=== PATIENT | male | born 2000 | race Caucasian/White ===

== ENCOUNTER 2022-07-22 14:42 | Emergency (ER) | payer BC, OTHER ==
[2022-07-22] MEDS ORDERED: Diphtheria,Pertussis(Acell),Tetanus Vaccine 0.5 ML Syringe IM ONE (15:01)
[2022-07-22] MEDS ORDERED: Lidocaine 1% with EPINEPHrine 1:100,000 10 ML MDV INJECT ONE (15:01)
== END 2022-07-22 15:24 | disposition home or self-care (01) ==
LOC: KA.ED 14:42
DX: S01.01XA Laceration without foreign body of scalp, initial encounter (principal); Z23 Encounter for immunization; W26.8XXA Contact with other sharp object(s), not elsewhere classified, initial encounter
CPT/HCPCS: 12002; 90471; 90715; 99282-25; J3490

== ENCOUNTER 2023-07-15 16:58 | Emergency (ER) | payer OTHER ==
[2023-07-15] MEDS ORDERED: Sodium Chloride 0.9% 10 ML Syringe FLUSH PRN (17:08)
[2023-07-15] MEDS ORDERED: Naloxone 0.4 MG/ML SDV IVPUSH PRN (17:09)
[2023-07-15] MEDS: Diphtheria,Pertussis(Acell),Tetanus Vaccine 0.5 ML Syringe IM ONE (17:15)
[2023-07-15] MEDS: Sodium Chloride 0.9% 1,000 ML ONE (17:26)
[2023-07-15] MEDS: HYDROmorphone 1 MG/ML Syringe IM ONE (17:27)
[2023-07-15] MEDS: Ondansetron 4 MG/2 ML SDV IVPUSH ONE (17:30)
[2023-07-15] MEDS: ceFAZolin 1 GM Vial IVPUSH ONE (17:32)
[2023-07-15] MEDS: Sodium Chloride 0.9% 1,000 ML IV SCH (17:35)
[2023-07-15 17:37] LABS: BASOPHILS ABSOLUTE AUTO 0.02 10^3/uL (0.00-0.10); BASOPHILS PERCENT AUTO 0.1 % (0.0-1.0); EOSINOPHILS ABSOLUTE AUTO 0.11 10^3/uL (0.10-0.30); EOSINOPHILS PERCENT AUTO 0.5 % (1.0-3.0); HEMATOCRIT 41.8 % (40.0-52.0); HEMOGLOBIN 14.9 g/dL (13.0-17.0); IMMATURE GRAN ABSOLUTE AUTO 0.03 10^3/uL (0.00-0.50); IMMATURE GRAN PERCENT AUTO 0.1 % (0.0-5.0); LYMPHOCYTES ABSOLUTE AUTO 2.66 10^3/uL (1.00-4.00); LYMPHOCYTES PERCENT AUTO 11.5 % (20.0-40.0); MEAN CORPUSCULAR HEMOGLOBIN 33.2 pg (27.0-31.0); MEAN CORPUSCULAR HGB CONC 35.6 g/dL (32.0-36.0); MEAN CORPUSCULAR VOLUME 93.1 fL (82.0-92.0); MEAN PLATELET VOLUME 9.4 fL (7.4-10.4); MONOCYTES ABSOLUTE AUTO 1.79 10^3/uL (0.10-0.80); MONOCYTES PERCENT AUTO 7.7 % (2.0-8.0); NEUTROPHILS ABSOLUTE AUTO 18.59 10^3/uL (2.50-7.00); NEUTROPHILS PERCENT AUTO 80.1 % (50.0-70.0); PLATELET COUNT,PLT 320 10^3/uL (150-400); RED BLOOD CELL COUNT 4.49 10^6/uL (4.50-6.00); RED CELL DISTRIBUTION WIDTH 11.6 % (11.5-14.5)
[2023-07-15] MEDS: HYDROmorphone 1 MG/ML Syringe ONE (17:38)
[2023-07-15] MEDS: Ondansetron 4 MG/2 ML SDV ONE (17:40)
[2023-07-15] MEDS: ceFAZolin 1 GM in Sodium Chloride 0.9% 50 ML IV ONE (17:43)
[2023-07-15] MEDS: HYDROmorphone 1 MG/ML Syringe IVPUSH PRN (17:44)
[2023-07-15 18:09] LABS: ALBUMIN 3.58 g/dL (3.40-5.00); ANION GAP 15.5 mmol/L (5-15); BILIRUBIN TOTAL 0.4 mg/dL (0.2-1.0); CALCIUM 8.3 mg/dL (8.7-10.3); CARBON DIOXIDE,CO2 26.2 mmol/L (21.0-32.0); CREATININE 0.96 mg/dL (0.51-1.17); EST CRCL DRUG DOSING (CG) 117.63 mL/min; POTASSIUM,K 3.7 mmol/L (3.5-5.1); PROTEIN TOTAL,TP 7.1 g/dL (6.4-8.2)
[2023-07-15 18:26] VITALS: BP 148/90; PULSE 76
== END 2023-07-15 18:20 ==
LOC: KA.ED 16:58
DX: S82.452B Displaced comminuted fracture of shaft of left fibula, initial encounter for open fracture type I or II (principal); S82.252B Displaced comminuted fracture of shaft of left tibia, initial encounter for open fracture type I or II; R74.8 Abnormal levels of other serum enzymes; Z23 Encounter for immunization; X58.XXXA Exposure to other specified factors, initial encounter
CPT/HCPCS: 29505; 36415; 71045; 72170; 73590-50; 73590-LT; 73590-RT; 73630-RT; 80053; 82550; 85025; 90471; 90715; 96361; 96372; 96374; 96375; 99284; 99285-25; J0690; J1170; J2405; J7030; Q3014